=== PATIENT | female | born 1985 | race Two or more races ===

== ENCOUNTER → 2020-06-15 08:00 | Outpatient (CLI) | payer OTHER | END | disposition home or self-care (01) | LOC: PPH VACUNA 08:00 | DX: Z23 Encounter for immunization (principal) ==

== ENCOUNTER 2022-10-10 09:37 | Outpatient (CLI) | payer OTHER | END 2022-10-10 09:54 | disposition home or self-care (01) | LOC: SONOGRAMA 09:37 | PROVIDERS: ATTEND Obstetrics & Gynecology | DX: N93.8 Other specified abnormal uterine and vaginal bleeding (principal); N84.0 Polyp of corpus uteri ==

== ENCOUNTER 2025-01-09 15:10 | Outpatient (CLI) | payer OTHER | END 2025-01-09 15:20 | disposition home or self-care (01) | LOC: PPH VACUNA 15:10 | PROVIDERS: ATTEND Emergency Medicine Pediatric Emergency Medicine | DX: Z23 Encounter for immunization (principal) ==

== ENCOUNTER 2025-02-25 08:56 | Outpatient (CLI) | payer OTHER ==
[2025-02-25 09:44] LABS: BASO % 1.0 % (0.1-1.2); EOS # 0.13 (0.04-0.54); EOS % 1.9 % (0.7-7.0); LYMPH # 1.39 (1.18-3.74); LYMPH % 20.6 % (19.3-53.1); MEAN PLATELET VOLUME 9.90 fl (9.4-12.4); MONO # 0.43 (0.24-0.82); MONO % 6.4 % (4.7-12.5); NEUT # 4.72 (1.56-6.13); NEUT % 69.8 % (34.0-71.1); RED CELL DISTRIBUTION WIDTH 14.3 % (11.6-14.4)
[2025-02-25 10:00] LABS: INR < 0.93
[2025-02-25 10:27] LABS: FREE TRIODOTIRONINE 2.82 pg/ml (2.18-3.98); T4 TOTAL 12.5 UG/DL (4.8-13.9); TSH 2.07 uIU/mL (0.358-3.74)
[2025-02-26 10:10] LABS: CA 125 30.3 U/mL (0.0-38.1)
== END 2025-02-25 13:36 | disposition home or self-care (01) ==
LOC: LAB 08:56
PROVIDERS: ATTEND Obstetrics & Gynecology
DX: D64.9 Anemia, unspecified (principal); E03.9 Hypothyroidism, unspecified; C54.1 Malignant neoplasm of endometrium; N93.8 Other specified abnormal uterine and vaginal bleeding; D68.9 Coagulation defect, unspecified

== ENCOUNTER 2025-02-25 09:28 | Outpatient (CLI) | payer OTHER | END 2025-02-25 09:29 | disposition home or self-care (01) | LOC: SONOGRAMA 09:28 | PROVIDERS: ATTEND Obstetrics & Gynecology | DX: N93.8 Other specified abnormal uterine and vaginal bleeding (principal) ==